=== PATIENT | male | born 1985 | race African-American/Black ===

== ENCOUNTER 2017-12-08 16:37 | Emergency (ER) | payer OTHER ==
[~2017-12-08] VITALS: Ht 162.6 cm; Wt 91.4 kg
[2017-12-08 16:38] VITALS: BP 126/66
[2017-12-08] MEDS ORDERED: WARF6TAB PO (16:55)
== END 2017-12-08 17:06 | disposition home or self-care (01) ==
LOC: ED 17:00
DX: I82.409 Acute embolism and thrombosis of unspecified deep veins of unspecified lower extremity (principal); D68.51 Activated protein C resistance; Z76.0 Encounter for issue of repeat prescription
CPT/HCPCS: 99283

== ENCOUNTER 2018-02-15 11:35 | Emergency (ER) | payer SELFPAY ==
[~2018-02-15] VITALS: Ht 165.1 cm; Wt 93.2 kg
[~2018-02-15 11:35] MED LIST: WARF6TAB PO
[2018-02-15 11:36] VITALS: BP 123/76
== END 2018-02-15 12:08 | disposition home or self-care (01) ==
LOC: ED 12:00
DX: D68.2 Hereditary deficiency of other clotting factors (principal); Z86.718 Personal history of other venous thrombosis and embolism; Z76.0 Encounter for issue of repeat prescription
CPT/HCPCS: 99283